=== PATIENT | male | born 1975 | race Asian ===

== ENCOUNTER 2025-05-11 12:51 | Emergency (ER) | payer OTHER, SELFPAY ==
--- NOTE | 2025-05-11 13:01 | PC.NURSE ---
called patient . sister in law reports he is in the bathroom
[2025-05-11 13:20] VITALS: BP 130/80; PULSE 63; RESP 20; TEMP 36.6; O2SAT 99; BMI 27.4
--- NOTE | 2025-05-11 13:22 | EKG_ITS ---
[address] [address] Test Date: 2025-05-11 Pat Name: Hina Carter Department: Room: Gender: Male Database Report Writer: : 1975 Requested By: Order Number: [id number] Reading MD: Flaco Mccauley MD Measurements Intervals Likely Rate: 69 P: 48 OH: 170 QRS: 44 QRSD: 88 T: 53 QT: 394 QTc: 422 Interpretive Statements Normal sinus rhythm with sinus arrhythmia Electronically Signed On 05-11-2025 13:53:55 PST by Flaco Mccauley MD
--- NOTE | 2025-05-11 13:30 | DI.RAD.S_ITS ---
PROCEDURE: XR CHEST 1V INDICATIONS: Chest Pain TECHNIQUE: One view of the chest was acquired. COMPARISON: None. FINDINGS: Surgical changes and devices: None. Lungs and pleura: Lungs are clear. No pleural effusions or pneumothorax. Mediastinum: Mediastinal contours appear normal. Heart size is normal. Bones and chest wall: No suspicious bony lesions. Overlying soft tissues appear unremarkable. IMPRESSION: No acute cardiopulmonary abnormality is seen. Approved by: Destiney Griggs M.D.,Ph.D. on 05/11/2025 at 14:31
--- NOTE | 2025-05-11 13:40 | ED_ITS ---
HPI - Chest Pain General Chief Complaint: Chest Pain Stated Complaint: chest pain, since 4am this morning Time Seen by Provider: 05/11/25 13:40 Source: patient Mode of arrival: Family Vehicle Limitations: no limitations History of Present Illness HPI narrative: Patient brought here by [id number]. Complains of reproducible burning left chest pain when he awoke this morning. Had similar discomforts in the past in 2017 but never found out reason for it. Patient states pain is better. It is worse with deep breath and palpation on the left breast area. He does not smoke. No history of hypertension hyperlipidemia. No primary family history of coronary disease. No personal family history of pulmonary embolism or aortic dissection. No known injury to this area. No recent illness. Patient had has not tried any medications for this. Currently 4/10 discomfort. It does not radiate. No numbness tingling or weakness. No syncope no nausea sweating. No recent exertional chest pain. Related Data Allergies Allergy/AdvReac Type Severity Reaction Status Date / Time No Known Drug Allergies Allergy Verified 05/11/25 13:20 Review of Systems Review of Systems Narrative: GENERAL: Negative chills, fatigue, malaise, fever, sweats. HEENT: Negative sinus pain, ear pain, sore throat RESPIRATORY: Negative dyspnea, cough CARDIOVASCULAR: Positive chest pain, negative palpitations GASTROINTESTINAL: Negative vomiting, nausea, abdominal pain : Negative dysuria, frequency, hematuria MUSCULOSKELETAL: Negative muscle or bony pain SKIN: Negative rash, skin lesions NEUROLOGIC: Negative weakness, numbness ROS Unobtainable: All systems reviewed & are unremarkable except as noted in HPI and below Patient History Social History Smoking Status: Never smoker Smoking Status: Never smoker Exam Narrative Exam Narrative: GENERAL: in no distress, not toxic not dyspneic HEAD: Normocephalic. EYES: Pupils equal round ENT: Mucous membranes moist. NECK: Trachea midline. CARDIOVASCULAR: Regular rate and rhythm reproducible left pectoral pain/tenderness, increased pain with deep breath. No murmur no crepitus no friction rub RESPIRATORY: Clear to auscultation. Breath sounds equal bilaterally. No wheezes, rales, or rhonchi. GASTROINTESTINAL: Abdomen soft, BACK: No flank tenderness. EXTREMITIES: No gross deformities. NEURO: AOx4. Clear speech SKIN: Warm and dry PSYCH: Not anxious, is cooperative Initial Vital Signs Initial Vital Signs: Vital Signs Temperature 97.8 F 05/11/25 13:20 Pulse Rate 63 05/11/25 13:20 Respiratory Rate 20 05/11/25 13:20 Blood Pressure 130/80 05/11/25 13:20 Pulse Oximetry 99 05/11/25 13:20 Oxygen Delivery Method Room Air 05/11/25 13:20 Scores HEART Score Heart Score history: Slightly Suspicious Heart Score EKG: Normal Heart Score Age: 45-64 years old Heart Score risk factors: No known risk factors Heart Score troponin: < or = to normal limit Heart Score Total: 1 Course Orders Ordered: Discontinued Medications Aspirin (Aspirin 81 Mg Chew Tab) 324 mg PO NOW ONE Stop: 05/11/25 13:31 Last Admin: 05/11/25 13:47 Dose: Not Given Documented By: JOSE Ketorolac Tromethamine (Ketorolac 30 Mg/Ml Vial) 15 mg IV NOW ONE Stop: 05/11/25 14:57 Last Admin: 05/11/25 15:15 Dose: Not Given Documented By: JOSE Vital Signs Vital signs: Vital Signs - 8 hr 05/11/25 13:20 Temperature 97.8 F Pulse Rate 63 Respiratory Rate 20 Blood Pressure 130/80 Pulse Oximetry 99 Oxygen Delivery Method Room Air MDM - Chest Pain Lab Data 05/11/25 13:38 05/11/25 13:38 Labs: Lab Results 05/11/25 05/11/25 Range/Units 13:38 15:20 WBC 7.3 (4.5-11.0) X10^3/uL RBC 4.78 (4.5-5.9) X10^6/uL Hgb 13.8 (13.5-17.5) g/dL Hct 40.3 L (41-53) % MCV 84.4 (80-100) fL MCH 28.9 (26-34) PG MCHC 34.3 (30-36) % RDW 13.6 (11.6-14.8) % Plt Count 213 (150-400) X10^3/uL Neut % (Auto) 64.7 (50-75) % Lymph % (Auto) 27.2 (25-40) % [place] % (Auto) 4.5 (3-14) % Eos % (Auto) 3.2 (2-4) % Baso % (Auto) 0.4 (0-2) % Neut # (Auto) 4700 (6711-8110) /uL Lymph # (Auto) 2000 (7102-5986) /uL [place] # (Auto) 300 (0-900) /uL Eos # (Auto) 200 (0-450) /uL Baso # (Auto) 0 (0-100) /uL PT 10.8 (9.4-12.5) SECONDS INR 1.0 (0.9-1.3) APTT 31 (25.1-36.5) SECONDS D-Dimer 351 (<500) ng/ml Sodium 141 (137-145) mmol/L Potassium 3.9 (3.4-5.1) mmol/L Chloride 105 (98-107) mmol/L Carbon Dioxide 27 (22-32) mmol/L BUN 14 (9-20) mg/dL Creatinine 1.07 (0.66-1.25) mg/dL Estimated GFR > 60 (>60) mL/min BUN/Creatinine Ratio 13.1 (6-22) Glucose 119 H (70-99) mg/dL Calcium 9.2 (8.4-10.2) mg/dL Magnesium 1.8 (1.6-2.3) mg/dL Total Bilirubin 0.3 (0.2-1.3) mg/dL AST 33 (17-59) IU/L ALT 24 (<50) IU/L Alkaline Phosphatase 54 (38-126) U/L Total Creatine Kinase 126 116 (55-170) U/L Troponin I < 0.012 < 0.012 (0.01-0.034) ng/mL NT-Pro-B Natriuret Pep < 20 (<125) pg/mL Total Protein 8.1 (6.3-8.2) g/dL Albumin 4.7 (3.5-5.0) g/dL Globulin 3.4 (1.7-4.1) g/dL Albumin/Globulin Ratio 1.4 (1.0-2.8) Lipase 67 (23-300) U/L [facility] Narrative Medical decision making narrative: Patient brought here by [id number]. Complains of reproducible burning left chest pain when he awoke this morning. Had similar discomforts in the past in 2017 but never found out reason for it. Patient states pain is better. It is worse with deep breath and palpation on the left breast area. He does not smoke. No history of hypertension hyperlipidemia. No primary family history of coronary disease. No personal family history of pulmonary embolism or aortic dissection. No known injury to this area. No recent illness. Patient had has not tried any medications for this. Currently 4/10 discomfort. It does not radiate. No numbness tingling or weakness. No syncope no nausea sweating. No recent exertional chest pain. MDM After history and exam, EKG troponin D-dimer CBC CMP BNP PT INR chest x-ray, total pending laboratory results Differential considered: Includes but not limited to STEMI non-STEMI angina pulmonary embolism aortic dissection pleurisy costochondritis Medical records reviewed: No recent visit for this complaint Lab Test results independently reviewed as above. Pertinent findings: WBC 7.3 hemoglobin 13.8 INR 1.0 D-dimer 351 sodium 141 potassium 3.9 AST 33 ALT 24 troponin less than 0.012 X2 BNP less than 20 D-dimer 351 Independently reviewed EKG normal sinus rhythm rate [address]-elevation or depression. Normal EKG Imaging studies independently reviewed: Chest x-ray no acute finding Consultations: None indicated at this time. Re-evaluations: 3:02 p.m.. Patient states he has no chest pain at this time. Does not want Toradol. Reviewed with them repeat troponin pending. Reviewed with him likely pleurisy, [id number] next a.m.. Discussion: Appropriate for discharge home. Exam is reassuring. Return precautions reviewed with patient. Not toxic at discharge. They desire discharge home after repeat troponin. Patient was given aspirin, anti- inflammatory/antiplatelet which can help patient's pleurisy. Appropriate for repeat troponin as symptoms started at 4:00 a.m. today Diagnosis: Pleurisy 3:[address] Young: Sent out to Dr. Mae, repeat troponin is pending. Discharge Plan Departure Patient Disposition: Home Clinical Impression: Pleurisy Instructions: DI for Pleurisy Activity Restrictions/Additional Instructions: Your exam and laboratory studies are reassuring. Your likely experiencing pleurisy. I am glad you are feeling better. Please see your family doctor in a week for re-evaluation. Return immediately if worse if any questions or concerns. May continue ibuprofen or Tylenol for pain. Stand Alone Forms: Patient Portal/API
[2025-05-11 13:51] LABS: Add Manual Diff / Slide Review NO; Hematocrit 40.3 % (41-53); Hemoglobin 13.8 g/dL (13.5-17.5); Lymphocytes Absolute Auto 2000 /uL (1100-4500); Mean Corpuscular HGB Conc 34.3 % (30-36); Mean Corpuscular Hemoglobin 28.9 PG (26-34); Mean Corpuscular Volume 84.4 fL (80-100); Platelet Count 213 X10^3/uL (150-400)
[2025-05-11 14:09] LABS: Alanine Aminotransferase 24 IU/L (<50); Albumin 4.7 g/dL (3.5-5.0); Albumin Globulin Ratio 1.4 (1.0-2.8); Alkaline Phosphatase 54 U/L (38-126); Blood Urea Nitrogen 14 mg/dL (9-20); Calcium 9.2 mg/dL (8.4-10.2); Carbon Dioxide 27 mmol/L (22-32); Chloride 105 mmol/L (98-107); Creatine Kinase 126 U/L (55-170); Estimated Glomerular Filt Rate > 60 mL/min (>60); Globulin 3.4 g/dL (1.7-4.1); Glucose 119 mg/dL (70-99); HEMOLYSIS 18 (0-50); Lipase 67 U/L (23-300); Magnesium 1.8 mg/dL (1.6-2.3); Potassium 3.9 mmol/L (3.4-5.1); Sodium 141 mmol/L (137-145); Total Protein 8.1 g/dL (6.3-8.2)
[2025-05-11 14:12] LABS: INR 1.0 (0.9-1.3); Prothrombin Time 10.8 SECONDS (9.4-12.5)
[2025-05-11 14:15] LABS: PTT Partial Thromboplastin Tim 31 SECONDS (25.1-36.5)
[2025-05-11 14:21] LABS: NT-proBNP (BNP-Adult 18+) < 20 pg/mL (<125); Troponin I < 0.012 ng/mL (0.01-0.034)
[2025-05-11 15:38] LABS: Creatine Kinase 116 U/L (55-170)
[2025-05-11 15:48] VITALS: BP 130/72; PULSE 71; RESP 16; O2SAT 98
[2025-05-11 15:52] LABS: Troponin I < 0.012 ng/mL (0.01-0.034)
== END 2025-05-11 15:51 | disposition home or self-care (01) ==
PROVIDERS: Student in an Organized Health Care Education/Training Program; Emergency Provider Emergency Medicine
DX: R09.1 Pleurisy (principal)
CPT/HCPCS: 36415; 71045; 80053; 82550; 83690; 83735; 83880; 84484; 85025; 85379; 85610; 85730; 93005; 93010; 99281; 99284